=== PATIENT | female | born 1975 | race Caucasian/White ===

== ENCOUNTER 2020-12-23 16:30 | Emergency (ER) | payer MEDICAID ==
[~2020-12-23] VITALS: Ht 177.8 cm; Wt 58.3 kg
--- NOTE | 2020-12-23 19:40 | NUR ---
PT AMBULATORY WITH STEADY GAIT FROM LOBBY TO ROOM 38
--- NOTE | 2020-12-23 19:41 | NUR ---
INITIAL PT CONTACT. PT PRESENTS TO ED C/O RECTAL PAIN X1 DAY. "I THINK I HAVE HEMHORRHOIDS, I HAVEN'T HAD THEM BEFORE THOUGH." PT SITTING UPRIGHT ON [place] VSS. PT DENIES ANY NEEDS AT THIS TIME. CALL LIGHT AND PERSONAL BELONGINGS WITHIN REACH. AWAITING ERP
--- NOTE | 2020-12-23 20:27 | NUR ---
ERP DR. STAHL AT BEDSIDE FOR RECTAL EXAM, THIS RN KAL. PT TOLERATED PROCEDURE WELL
[2020-12-23] MEDS ORDERED: LIDOCAINE 2%,20 ML JEL.PF.APP MM ONE ×2 (20:46→21:00)
[2020-12-23] MEDS ORDERED: LIDOCAINE 4% CREAM 5GM TUBE TP ONE (21:00)
[2020-12-23] MEDS ORDERED: HYDROCORTISONE 25 MG SUPP PR ONE (21:00)
[2020-12-23 22:11] VITALS: BP 124/82
--- NOTE | 2020-12-23 22:11 | NUR ---
Patient given discharge instructions and they have confirmed that they understand the instructions. Patient ambulatory with steady gait.
== END 2020-12-23 22:13 | disposition home or self-care (01) ==
LOC: ED 20:33
DX: K64.4 Residual hemorrhoidal skin tags (principal)
CPT/HCPCS: 99283

== ENCOUNTER 2021-02-04 21:39 | Emergency (ER) | payer MEDICAID ==
[~2021-02-04] VITALS: Ht 158.8 cm; Wt 51.1 kg
--- NOTE | 2021-02-04 22:03 | NUR ---
MED STUDENT AT BEDSIDE.
--- NOTE | 2021-02-04 22:07 | NUR ---
A&OX4, BREATHING EVEN AND UNLABORED. NADN.
--- NOTE | 2021-02-04 22:16 | NUR ---
PT STATES SHE CALLED INTO WORK AND NEEDS A WORK NOTE. PT STATES WHEN SHE SPEAKS LOUDLY SHE GETS A COUGH PT REPORTS STOMACH CRAMPS, AND NAUSEA EARLIER. NONE CURRENTLY. PT STATES ITCHY, AND CP AND STATES SOMETHING IS GOING ON. ATTACHED TO MONITORS,VSS. NADN. BED IN LOW, RAILS ENGAGED. CALL LIGHT ON LAP.
[2021-02-04 22:38] VITALS: BP 130/64
== END 2021-02-04 23:05 | disposition home or self-care (01) ==
LOC: ED 22:22
DX: J45.909 Unspecified asthma, uncomplicated (principal); F17.200 Nicotine dependence, unspecified, uncomplicated
CPT/HCPCS: 93005; 99283